=== PATIENT | female | born 1970 | race Caucasian/White ===

== ENCOUNTER → 2018-11-07 | Day surgery (SDC) | payer BC ==
--- NOTE | 2018-11-08 10:19 | PATH ---
Surgical Pathology Report Patient Name: MANSI LYON [facility]. Rec. #: [id number] /Age/Gender: 1970 (Age: 48) / F Account: [id number] Location: [facility] Taken: 11/07/2018 Received: 11/07/2018 Reported: 11/08/2018 Physicians: Santana German M.D. Specimen(s) Received A: RIGHT BREAST RETROAREOLAR B: LEFT BREAST 5:00 Clinical History Right breast retroareolar mass, 1.6 cm Left breast 5:00, 2.1 cm mass Final Diagnosis A. BREAST, RIGHT, RETROAREOLAR, ULTRASOUND GUIDED CORE BIOPSY: FIBROADENOMA. B. BREAST, LEFT, 5:00, ULTRASOUND GUIDED CORE BIOPSY: FIBROADENOMA. MINUTE FRAGMENT OF SKIN WITHOUT SIGNIFICANT PATHOLOGIC FINDINGS. Electronically Signed Yaa Lovell M.D. Gross Description A. Received in formalin labeled "right breast retroareolar" are 3 yang-yellow, cylindrical portions of fibroadipose tissue ranging from 0.7-1.5 cm in length and averaging 0.2 cm diameter. The specimens are submitted in toto in one cassette. B. Received in formalin labeled "left breast 5:00" are 3 yang-yellow, cylindrical portions of fibroadipose tissue ranging from 0.3-1.5 cm in length and averaging 0.2 cm diameter. The specimens are submitted in toto in one cassette. Time to formalin fixation: <1 minute Total formalin fixation time: Between 8-9 hours.
== END | disposition home or self-care (01) ==
LOC: JRADUS-SUR 08:23
PROVIDERS: ATTEND Obstetrics & Gynecology
PROC: 0HBV3ZX Excision of Bilateral Breast, Percutaneous Approach, Diagnostic (ICD-10-PCS; principal; 2018-11-07)
DX: D24.2 Benign neoplasm of left breast (principal); D24.1 Benign neoplasm of right breast
CPT/HCPCS: 19083; 19084; 87899; 88305-TC; A4648

== ENCOUNTER 2021-02-25 04:47 | Day surgery (SDC) | payer BC, OTHER ==
[2021-02-18 12:08] VITALS: BMI 21.7
[2021-02-25 09:18] VITALS: TEMP 97.7
[2021-02-25 09:56] VITALS: BP 130/79; PULSE 84
== END 2021-02-25 10:28 | disposition home or self-care (01) ==
LOC: JASU-ENDO 04:47
PROVIDERS: ATTEND Internal Medicine Gastroenterology
PROC: 0DJD8ZZ Inspection of Lower Intestinal Tract, Via Natural or Artificial Opening Endoscopic (ICD-10-PCS; principal; 2021-02-25 08:30)
DX: Z12.11 Encounter for screening for malignant neoplasm of colon (principal); K63.89 Other specified diseases of intestine; K64.8 Other hemorrhoids
CPT/HCPCS: 81025

== ENCOUNTER 2021-03-31 04:16 | Day surgery (SDC) | payer BC ==
[2021-03-27 14:11] VITALS: BMI 21.0
[2021-03-31] MEDS ORDERED: IBUPROFEN 400 MG TABLET (FP) PO PRN (08:02)
[2021-03-31] MEDS ORDERED: ACETAMINOPHEN 325 MG TABLET (FP) PO PRN (08:02)
[2021-03-31] MEDS ORDERED: MIDAZOLAM HCL 2 MG/2 ML SINGLE DOSE VIAL ONE (09:30)
[2021-03-31] MEDS ORDERED: PROPOFOL 20 ML ONE ×2 (09:41)
[2021-03-31] MEDS ORDERED: DEXAMETHASONE SOD PHOSPHATE 4 MG/1 ML VIAL ONE (09:47)
[2021-03-31] MEDS ORDERED: KETOROLAC TROMETHAMINE 30 MG/1 ML VIAL ONE (09:47)
[2021-03-31] MEDS ORDERED: oxyCODONE HCL 5 MG TABLET PO PRN (12:50)
[2021-03-31] MEDS ORDERED: ONDANSETRON 4 MG/2 ML VIAL IVPUSH PRN (12:50)
[2021-03-31] MEDS ORDERED: LACTATED RINGERS SOLUTION 1,000 ML IV SCH (13:00)
[2021-03-31 13:50] VITALS: BP 113/78; PULSE 89; TEMP 98.7
== END 2021-03-31 14:05 | disposition home or self-care (01) ==
LOC: JASU-SURG 04:16
PROVIDERS: ATTEND Obstetrics & Gynecology
PROC: 0UB98ZX Excision of Uterus, Via Natural or Artificial Opening Endoscopic, Diagnostic (ICD-10-PCS; principal; 2021-03-31 09:00)
PROC: 0UDB8ZX Extraction of Endometrium, Via Natural or Artificial Opening Endoscopic, Diagnostic (ICD-10-PCS; 2021-03-31 09:00)
DX: N93.9 Abnormal uterine and vaginal bleeding, unspecified (principal); N84.0 Polyp of corpus uteri
CPT/HCPCS: 81025; 86850; 86900; 86901; 88305-TC; 94760

== ENCOUNTER 2023-04-22 12:47 | Emergency (ER) | payer BC ==
[2023-04-22 12:54] VITALS: BP 126/81; PULSE 87; RESP 17; TEMP 99.2; BMI 21.0
[2023-04-22] MEDS ORDERED: IBUPROFEN 600 MG TABLET (FP) PO ONE (13:52)
[2023-04-22] MEDS: IBUPROFEN 600 MG TABLET (FP) PO ONE (13:54)
== END 2023-04-22 15:11 | disposition home or self-care (01) ==
LOC: FER 12:47
DX: S09.90XA Unspecified injury of head, initial encounter (principal); S29.092A Other injury of muscle and tendon of back wall of thorax, initial encounter; W20.8XXA Other cause of strike by thrown, projected or falling object, initial encounter; Y99.0 Civilian activity done for income or pay; Y92.63 Factory as the place of occurrence of the external cause
CPT/HCPCS: 70450-TC; 99284-25